=== PATIENT | male | born 1960 | race Caucasian/White ===

== ENCOUNTER 2018-11-03 15:23 | Emergency (ER) | payer MEDICAID, OTHER | END 2018-11-03 19:02 | disposition home or self-care (01) | LOC: C.ER 15:23 | CPT/HCPCS: 70450; 71046; 74177; 80053; 83690; 84484; 85025; 93005; 96374; 99285; J2405; J7040; Q9967 ==

== ENCOUNTER 2018-11-19 10:08 | Emergency (ER) | payer MEDICAID, OTHER ==
[2018-11-19 10:08] VITALS: BMI 26.6
[2018-11-19 10:31] VITALS: RESP 18; TEMP 98.1
[2018-11-19] MEDS ORDERED: Sodium Chloride 0.9% 1,000 ML IV ONE (10:43)
--- NOTE | 2018-11-19 10:47 | C.PDOC ---
History Of Present Illness 57 year old male presents to ED with complaint of "room spinning" dizziness associated with nausea and vomiting for the past 2 weeks. Patient was seen at [facility] ED for same symptoms 2 weeks ago and given meclizine. Patient notes that the meclizine didn't help. Patient has a follow up with a neurologist on 11/21, but has to go through the clinic because he has colleen care. He denies facial droop, slurred speech, and extremity weakness/numbness. Time Seen by Provider: 11/19/18 10:28 Chief Complaint (Nursing): Dizziness/Lightheaded History Per: Patient History/Exam Limitations: no limitations Onset/Duration Of Symptoms: Other (2 weeks) Current Symptoms Are (Timing): Still Present Fall Associated With With Symptoms: No - Symptoms Of CVA Associated Symptoms: denies: Impaired Speech, New Vision Deficit(Left), New Vision Deficit(Right) Past Medical History Reviewed: Historical Data, Nursing Documentation, Vital Signs Vital Signs: Last Vital Signs Temp 98.1 F 11/19/18 10:26 Pulse 83 11/19/18 10:26 Resp 18 11/19/18 10:26 BP 129/86 11/19/18 10:26 Pulse Ox 98 11/19/18 10:26 Primary Care Provider: FAMILY PROVIDER,NO - Medical History PMH: Migraine Surgical History: No Surg Hx Family History: States: Unknown Family Hx - Social History Hx Tobacco Use: No Hx Alcohol Use: No Hx Substance Use: Yes - Immunization History Hx Tetanus Toxoid Vaccination: No Hx Influenza Vaccination: No Hx Pneumococcal Vaccination: No Review Of Systems Constitutional: Negative for: Fever, Chills, Weakness Eyes: Negative for: Vision Change Gastrointestinal: Negative for: Nausea, Vomiting Neurological: Positive for: Dizziness. Negative for: Weakness, Numbness, Change in Speech, Headache, Other (facial droop) Physical Exam - Physical Exam Appears: Other (uncomfortable) Skin: Normal Color, Warm, Dry Head: Atraumatic, Normacephalic Eye(s): bilateral: Normal Inspection (no nystagmus), PERRL, EOMI Neck: Normal ROM, Supple Chest: Symmetrical, No Deformity Cardiovascular: Rhythm Regular, No Murmur Respiratory: No Accessory Muscle Use, No Rales, No Rhonchi, No Wheezing Gastrointestinal/Abdominal: Soft, No Tenderness Extremity: Capillary Refill (<2 seconds) Extremity: Bilateral: Atraumatic, Normal Color And Temperature, Normal ROM Pulses: Left Radial: Normal, Right Radial: Normal Neurological/Psych: Oriented x3, Normal Speech, Normal Cognition, Normal Cranial Nerves, Normal Motor, Normal Sensation Gait: Steady ED Course And Treatment - Laboratory Results Result Diagrams: 11/19/18 10:54 11/19/18 10:54 O2 Sat by Pulse Oximetry: 98 (in RA) Pulse Ox Interpretation: Normal Progress Note: Labs ordered with CMP and CBC. Patient given meclizine, zofran, and IV fluids. Disposition Counseled Patient/Family Regarding: Studies Performed, Diagnosis, Need For Followup, Rx Given - Disposition Referrals: [facility] [Outside] Disposition: HOME/ ROUTINE Disposition Time: 13:00 Condition: STABLE Additional Instructions: FOLLOW UP WITH MEDICAL CLINIC ON TUESDAY FOR NEUROLOGY REFERRAL RETURN TO ER IF YOUR SYMPTOMS WORSEN Prescriptions: Meclizine [Meclizine*] 25 mg PO Q6 #30 tab Instructions: Vertigo (a Type of Dizziness) (DC) Forms: [employer] (Nigerian) Print Language: SAMOAN - Clinical Impression Clinical Impression: BPV (benign positional vertigo) - Scribe Statement The provider has reviewed the documentation as recorded by the Scribe (Odette Lux) All medical record entries made by the Scribe were at my direction and personally dictated by me. I have reviewed the chart and agree that the record accurately reflects my personal performance of the history, physical exam, medical decision making, and the department course for this patient. I have also personally directed, reviewed, and agree with the discharge instructions and disposition.
[2018-11-19] MEDS ORDERED: Sodium Chloride 0.9% 1,000 ML ONE (10:56)
[2018-11-19 10:58] LABS: BASO % 0.2 % (0.0-2.0); EOS # 0.2 K/uL (0.0-0.7); EOS % 3.7 % (0.0-4.0); HEMOGLOBIN 15.3 g/dL (12.0-18.0); LYMPH # 1.9 K/uL (1.0-4.3); LYMPH % 35.5 % (20.0-40.0); MEAN CELL VOLUME 91.4 fL (80.0-94.0); MEAN CORPUSCULAR HEMOGLOBIN 31.8 pg (27.0-31.0); MEAN CORPUSCULAR HGB CONC 34.8 g/dL (33.0-37.0); MEAN PLATELET VOLUME 7.5 fL (7.2-11.7); MONO # 0.3 K/uL (0.0-0.8); MONO % 6.4 % (0.0-10.0); NEUT # 2.9 K/uL (1.8-7.0); NEUT % 54.2 % (50.0-75.0); NRBC % 0.1 % (0.0-2.0); RBC 4.81 Mil/uL (4.40-5.90); RED CELL DISTRIBUTION WIDTH 13.4 % (11.5-14.5); WHITE BLOOD COUNT 5.3 K/uL (4.8-10.8)
[2018-11-19 11:12] LABS: ALB/GLOB RATIO 1.4 (1.0-2.1); ALBUMIN 4.2 g/dL (3.5-5.0); BLOOD UREA NITROGEN 16 mg/dL (9-20); CALCIUM 8.7 mg/dl (8.6-10.4); GFR NON-AFRICAN AMERICAN > 60
[2018-11-19 11:16] LABS: ALT/SGPT 22 U/L (21-72); AST/SGOT 28 U/L (17-59)
[2018-11-19 13:01] VITALS: O2SAT 98
[2018-11-19 13:09] VITALS: BP 122/79; PULSE 74
== END 2018-11-19 13:12 | disposition home or self-care (01) ==
LOC: C.ER 10:08
DX: H81.10 Benign paroxysmal vertigo, unspecified ear (principal)
CPT/HCPCS: 80053; 82948; 85025; 96361; 96374; 96375; 99285; J2060; J2405; J7030